=== PATIENT | female | born 1980 | race African-American/Black ===

== ENCOUNTER 2018-03-03 19:03 | Emergency (ER) | payer MEDICAID, OTHER ==
[~2018-03-03] VITALS: Ht 154.9 cm; Wt 62.0 kg
[2018-03-03 20:15] VITALS: BP 130/84
== END 2018-03-03 22:17 | disposition left against medical advice (07) ==
LOC: ER 19:03
DX: Z53.21 Procedure and treatment not carried out due to patient leaving prior to being seen by health care provider (principal)

== ENCOUNTER 2018-03-05 16:03 | Emergency (ER) | payer MEDICAID ==
[~2018-03-05] VITALS: Ht 154.9 cm; Wt 63.0 kg
[2018-03-05 18:13] LABS: BASOPHILS % 0.9 % (0.0-2.0); HEMATOCRIT. 38.3 % (36.0-48.0); HEMOGLOBIN. 13.6 g/dL (12.0-16.0); MEAN CORPUSCULAR HEMOGLOBIN 34.1 pg (28.0-32.0); MEAN CORPUSCULAR VOLUME 96.3 fL (81.0-99.0); MEAN PLATELET VOLUME 8.2 fl (7.4-10.4); MONOCYTES % 9.7 % (2.0-8.0); NEUTROPHILS % 47.4 % (40.0-76.0); PLATELET 309 x1000/uL (130-400); RED BLOOD CELL COUNT 3.97 mill/uL (4.2-5.4); RED CELL DISTRIBUTION WIDTH 12.5 % (11.6-14.6)
[2018-03-05 18:17] LABS: CHLORIDE 106 mEq/L (98-107)
[2018-03-05 18:53] LABS: B-HCG QUANTITATIVE 3678 mIU/mL (<3)
[2018-03-05 19:18] LABS: CLARITY URINE CLEAR (CLEAR); COLOR URINE YELLOW (YELLOW); KETONES URINE 1+ (NEGATIVE); LEUKOCYTE ESTERASE URINE NEGATIVE (NEGATIVE); NITRITE URINE NEGATIVE (NEGATIVE); OCCULT BLOOD URINE NEGATIVE (NEGATIVE); PH URINE 5.5 (4.5-8.0); PROTEIN URINE NEGATIVE (NEGATIVE); SPECIFIC GRAVITY URINE 1.027 (1.005-1.030); UROBILINOGEN URINE 0.2 E.U./dL (0.2-1.0)
[2018-03-05 20:21] VITALS: BP 139/81
== END 2018-03-05 20:33 | disposition home or self-care (01) ==
LOC: ER 18:10
DX: O20.0 Threatened abortion (principal); Z3A.01 Less than 8 weeks gestation of pregnancy
CPT/HCPCS: 36415; 76830; 76856; 80053; 81003; 81025; 84702; 85025; 86850; 86900; 99285

== ENCOUNTER 2018-10-11 20:40 | Emergency (ER) | payer MEDICAID ==
[~2018-10-11] VITALS: Ht 170.2 cm; Wt 63.0 kg
[2018-10-11 21:25] VITALS: BP 147/90
[2018-10-11] MEDS ORDERED: ACETAMINOPHEN 325MG TABLET PO ONE (22:45)
== END 2018-10-11 23:16 | disposition home or self-care (01) ==
LOC: ER 20:40
DX: R51 Headache (principal); V43.52XA Car driver injured in collision with other type car in traffic accident, initial encounter; Y93.89 Activity, other specified; Y92.488 Other paved roadways as the place of occurrence of the external cause
CPT/HCPCS: 99283

== ENCOUNTER 2022-06-07 16:09 | Emergency (ER) | payer MEDICAID, OTHER ==
[~2022-06-07] VITALS: Ht 154.9 cm; Wt 66.0 kg
[2022-06-07 16:14] VITALS: BP 156/81
[2022-06-07 22:18] LABS: BASOPHILS % 1.2 % (0.0-2.0); EOSINOPHILS % 1.4 % (0.0-5.0); HEMOGLOBIN. 12.7 g/dL (12.0-16.0); LYMPHOCYTES % 42.9 % (20.0-50.0); MEAN CORPUSCULAR HEMOGLOBIN 32.3 pg (28.0-32.0); MEAN CORPUSCULAR VOLUME 96.8 fL (81.0-99.0); MEAN PLATELET VOLUME 8.8 fl (7.4-10.4); MONOCYTES % 7.1 % (2.0-8.0); NEUTROPHILS % 47.4 % (40.0-76.0); PLATELET 261 x1000/uL (130-400); RED BLOOD CELL COUNT 3.93 mill/uL (4.2-5.4); RED CELL DISTRIBUTION WIDTH 13.5 % (11.6-14.6)
[2022-06-07 22:26] LABS: CHLORIDE 108 mEq/L (98-107)
[2022-06-07 22:33] LABS: HCG SCREEN NEGATIVE
[2022-06-07 22:35] LABS: B-HCG QUANTITATIVE < 1 mIU/mL (<3)
[2022-06-07] MEDS ORDERED: IBUP-2030 PO (22:37)
[2022-06-07 23:54] LABS: CLARITY URINE CLEAR (CLEAR); COLOR URINE YELLOW (YELLOW); KETONES URINE 1+ (NEGATIVE); LEUKOCYTE ESTERASE URINE NEGATIVE (NEGATIVE); NITRITE URINE NEGATIVE (NEGATIVE); OCCULT BLOOD URINE 3+ (NEGATIVE); PH URINE 5.5 (4.5-8.0); PROTEIN URINE 1+ (NEGATIVE); SPECIFIC GRAVITY URINE 1.025 (1.005-1.030)
== END 2022-06-08 00:26 | disposition home or self-care (01) ==
LOC: ER 16:21
DX: D25.9 Leiomyoma of uterus, unspecified (principal)
CPT/HCPCS: 36415; 76830; 76856; 80053; 81003; 81025; 84702; 84703; 85025; 86850; 86900; 99284